=== PATIENT | female | born 1950 | race Caucasian/White ===

== ENCOUNTER → 2016-12-07 | Outpatient (CLI) | payer MEDICARE, OTHER ==
[~2016-12-07] MED LIST: AMLO-511 PO; ASPI-989 PO; ATOR40TA28 PO; CARV12 PO; CILO100T PO; CITA20TA9 PO; EZET10 PO; FURO20 PO; INSLAN SQ; INSNOV SQ; LOSA50TA37 PO; OMEP20 PO; RANO500T3 PO
[2016-12-07 10:16] LABS: ALBUMIN 3.6 g/dL (3.4-5.0); BILIRUBIN,TOTAL 0.6 mg/dL (0.1-1.0); CALCIUM, TOTAL 8.8 mg/dL (8.8-10.5); CHOL/HDL RATIO 3.3 (3.9-5.7); CREATININE 1.33 mg/dL (0.60-1.30); POTASSIUM 3.8 mmol/L (3.5-5.1); TOTAL PROTEIN, SERUM 7.5 g/dL (6.4-8.2)
== END | disposition home or self-care (01) ==
LOC: LABPV 08:10
PROVIDERS: ATTEND Internal Medicine Cardiovascular Disease
DX: I11.0 Hypertensive heart disease with heart failure (principal); I50.9 Heart failure, unspecified; E11.65 Type 2 diabetes mellitus with hyperglycemia; E55.9 Vitamin D deficiency, unspecified

== ENCOUNTER 2017-07-01 07:15 | Day surgery (SDC) | payer MEDICARE, OTHER ==
[~2017-07-01] VITALS: Ht 144.8 cm; Wt 76.5 kg
[~2017-07-01 07:15] MED LIST changes: +CITA-106 PO; -CITA20TA9 PO
[2017-07-01] MEDS ORDERED: SODIUM CHLORIDE 0.9% 1,000 ML IV ONE ×2 (07:21→07:30)
[2017-07-01] MEDS ORDERED: GABA-531 PO (07:40)
[2017-07-01] MEDS ORDERED: CITA-106 PO (07:40)
[2017-07-01] MEDS ORDERED: NITR0.4T50 SL (07:40)
[2017-07-01] MEDS ORDERED: ISOS60TA4 PO (07:40)
[2017-07-01] MEDS ORDERED: ASPI81 PO (07:40)
[2017-07-01] MEDS ORDERED: RANO500T3 PO (07:40)
[2017-07-01] MEDS ORDERED: CLOP75TA32 PO (07:40)
[2017-07-01 07:49] LABS: BASOPHILS % (AUTO) 1.2 % (0.0-2.0); EOSINOPHILS % (AUTO) 4.9 % (1.0-6.0); HEMOGLOBIN 14.2 g/dL (12.0-16.0); LYMPHOCYTES # (AUTO) 1.7 K/uL (1.0-4.8); MEAN CORPUSCULAR HEMOGLOBIN 30.8 pg (26.0-34.0); MEAN CORPUSCULAR HGB CONC 34.6 G/dL (31.0-37.0); MEAN CORPUSCULAR VOLUME 89 fL (80-100); MONOCYTES # (AUTO) 0.6 K/uL (0.1-1.0); MONOCYTES % (AUTO) 9.4 % (2.0-9.0); NEUTROPHILS % (AUTO) 59.5 % (40.0-70.0); PLATELET COUNT (AUTO) 222 K/uL (150-450); RED BLOOD CELL COUNT(AUTO) 4.61 MIL/uL (4.00-5.20); RED CELL DISTRIBUTION WIDTH 15.1 % (11.5-14.5)
[2017-07-01 07:58] LABS: CALCIUM, TOTAL 7.9 mg/dL (8.8-10.5); CREATININE 1.3 mg/dL (0.60-1.30); POTASSIUM 3.4 mmol/L (3.5-5.1)
[2017-07-01 08:10] LABS: PROTHROMBIN TIME 10.7 SEC (9.4-11.6)
[2017-07-01] MEDS ORDERED: SODIUM BICARBONATE 150 MEQ in DEXTROSE 5%-WATER 850 ML IV ONE (09:15)
[2017-07-01] MEDS ORDERED: HEPARIN SODIUM 1000 UNITS/NS 1,000 ML ONE (09:43)
[2017-07-01] MEDS ORDERED: SODIUM BICARBONATE 50 MEQ/50 ML VIAL ONE (09:43)
[2017-07-01] MEDS ORDERED: IOHEXOL 300 MG/ML 150 ML VIAL ONE (09:43)
[2017-07-01] MEDS ORDERED: LIDOCAINE HCL/PF 1% 30 ML VIAL ONE (09:43)
[2017-07-01 10:10] VITALS: BP 189/84
[2017-07-01] MEDS ORDERED: HEPARIN SODIUM 2,000 UNITS in HEPARIN SODIUM 1000 UNITS/NS 1,000 ML IARTER ONE (10:49)
[2017-07-01] MEDS ORDERED: IOHEXOL 300 MG/ML 100 ML VIAL ONE (10:56)
[2017-07-01] MEDS ORDERED: IOHEXOL 300 MG/ML 150 ML VIAL IARTER ONE (11:00)
[2017-07-01] MEDS ORDERED: LIDOCAINE 1% 30 ML/SOD BICARB 8.4% 4 ML SQ ONE (11:00)
[2017-07-01] MEDS ORDERED: ISOS30TA6 PO (11:02)
[2017-07-01] MEDS ORDERED: DILTIAZEM HCL 5 MG/ML 5 ML VIAL IVP ONE ×2 (11:08→11:15)
[2017-07-01 11:26] VITALS: BP 187/88
[2017-07-01] MEDS ORDERED: AmLODIPine BESYLATE 5 MG TABLET PO ONE (12:00)
== END 2017-07-01 16:45 | disposition home or self-care (01) ==
LOC: CATHLAB 07:15
PROVIDERS: ATTEND Internal Medicine Cardiovascular Disease
DX: I25.810 Atherosclerosis of coronary artery bypass graft(s) without angina pectoris (principal); E11.9 Type 2 diabetes mellitus without complications; I10 Essential (primary) hypertension; N28.89 Other specified disorders of kidney and ureter; E78.5 Hyperlipidemia, unspecified; Z79.01 Long term (current) use of anticoagulants; Z79.4 Long term (current) use of insulin; Z95.1 Presence of aortocoronary bypass graft; Z95.5 Presence of coronary angioplasty implant and graft; Z79.899 Other long term (current) drug therapy
CPT/HCPCS: 36415; 80048; 85025; 85610; 85730; 93005; 93459; J1644; J3490 ×3; J7030; J7060; Q9967 ×2